=== PATIENT | male | born 1965 | race Caucasian/White ===

== ENCOUNTER 2021-02-02 10:51 | Inpatient (IN) | payer MEDICAID, SELFPAY ==
[2021-02-02] VITALS (7 sets, daily range): BP systolic 148–178; BP diastolic 70–96; PULSE 58–92; RESP 15–18; TEMP 36.4–37; O2SAT 96–97; BMI 29.2
--- NOTE | 2021-02-02 11:42 | EX.ED.DYSGE1 ---
HPI History of Present Illness Chief Complaint: Substance Abuse Informant: patient Narrative Narrative: Patient is a 55-year-old male who presents to the emergency department to detox from alcohol. He states that he has been drinking over the past 40 years. He has been typically drinks 12 beers per day. Over the past 4 months he is now drinking around 12 ounces of liquor per day along with this. He states he is going through a divorce which has triggered this. He has gone through a detox program before in the past, the last was 6 months ago. He last drank this morning. He had a few beers. He also smokes cigarettes. Patient also admits to smoking marijuana. He states he does feel shaky currently as well as some anxiety. He denies any chest pain, shortness of breath or heart palpitations. No abdominal pain or nausea/vomiting. No change in bowel movements. [facility] Medical History (Updated 02/02/21 @ 14:[address] Royce Medina DO) Alcohol abuse Anxiety Chronic pain COPD (chronic obstructive pulmonary disease) Depression Hypertension Peripheral vascular disease Smoker Substance abuse Home Medications amlodipine 10 mg PO DAILY 02/02/21 [History Last Taken Unknown] beclomethasone dipropionate [Qvar] 80 mcg INHALATION BID 02/02/21 [History Last Taken Unknown] clonidine HCl 0.2 mg PO TID 02/02/21 [History Last Taken Unknown] metoprolol succinate 50 mg PO BID 02/02/21 [History Last Taken Unknown] montelukast 10 mg PO QHS 02/02/21 [History Last Taken Unknown] umeclidinium [Incruse Ellipta] 1 inh INHALATION Q24H 02/02/21 [History Last Taken Unknown] Allergy/AdvReac Type Severity Reaction Status Date / Time No Known Allergies Allergy Verified 02/02/21 10:52 Surgical History (Updated 02/02/21 @ 12:18 by Dean Clarke) History of appendectomy Social History (Updated 02/02/21 @ 11:[address] Royce Medina DO) Smoking Status: Heavy Smoker (>10/day) ROS ROS ED Constitutional Constitutional ED: Denies chills or fever(s) Eyes Eyes: Denies change in vision ENT ENT ED: Denies epistaxis or rhinorrhea Cardiovascular Cardiovascular: Denies chest pain or palpitations Respiratory/Chest Respiratory/Chest: Denies cough, dyspnea or dyspnea on exertion Gastrointestinal Gastrointestinal: Denies abdominal pain, diarrhea, nausea or vomiting Genitourinary Genitourinary ED: Denies dysuria, hematuria or urinary frequency Musculoskeletal Musculoskeletal: Denies back pain or neck pain Integumentary Denies rash Neurologic Neurologic: Denies dizziness, headache(s) or weakness EXAM Physical Exam Const Vital Signs: 02/02/21 10:53 Temperature 97.6 F L Temperature Source Temporal Pulse Rate 91 Respiratory Rate 15 Blood Pressure 153/75 H Blood Pressure Mean 101 Pulse Ox 96 Positive well nourished and well developed General Appearance ED: well developed and NAD HEENT Reports normocephalic, head/scalp atraumatic and moist mucous membranes Eyes PERRL and EOMs intact bilaterally Neck supple Chest Wall inspection of chest normal Resp normal respiratory effort and clear to auscultation bilaterally Auscultation: Negative for rales, rhonchi or wheezes Cardio regular rate, regular rhythm and no murmurs GI normal to inspection, nondistended, normoactive bowel sounds and non-tender Palpation: soft; Negative for guarding or rebound tenderness present Back/Spine no CVA tenderness Extremity normal to inspection General Extremety ED: Negative for edema or tenderness General Extremity: Negative for edema Neuro oriented x3, CN's II-XII intact bilaterally and no sensory deficits noted Sensorium / Orientation: alert Motor Exam: strength 5/5 throughout Psych mental status grossly normal Skin no rashes or lesions noted MDM MDM MDM Narrative Medical decision making narrative: Patient presents to the ED to detox from alcohol. Last drink this morning. Upon arrival to the emergency department he is mildly hypertensive otherwise normal vital signs. He has a benign physical exam. Will check medical screening labs and plan on admission to the hospital for detox program. Patient has mild elevation of liver enzymes. His alcohol is negative. Talk screen is positive for cannabinoids which is consistent with his history. He otherwise has been stable throughout ED stay. Will bring into the hospital for further evaluation and management. He understands and is agreeable with this plan. Lab Data Labs: Laboratory Results - last 24 hr 02/02/21 02/02/21 02/02/21 11:50 11:50 11:50 WBC 10.2 RBC 4.72 Hgb 15.8 Hct 46.7 MCV 98.9 H MCH 33.5 H MCHC 33.8 RDW Std Deviation 55.1 H RDW Coeff of Joan 14.9 H Plt Count 234 MPV 9.6 Immature Gran % (Auto) 0.400 Neut % (Auto) 72.1 H Lymph % (Auto) 13.9 L Gem % (Auto) 9.3 Eos % (Auto) 3.5 Baso % (Auto) 0.8 Absolute Neuts (auto) 7.4 Absolute Lymphs (auto) 1.42 Nucleated RBC % 0 Sodium 137 Potassium 3.9 Chloride 100 Carbon Dioxide 29.0 Anion Gap 8 BUN 8 Creatinine 0.78 Estim Creat Clear Calc 111.29 Est GFR (MDRD) Af Amer 131 Est GFR (MDRD) Non-Af 109 BUN/Creatinine Ratio 10.2 Glucose 129 H Calcium 9.6 Total Bilirubin 0.40 AST 76 H ALT 105 H Alkaline Phosphatase 74 Total Protein 7.9 Albumin 3.7 Globulin 4.2 Albumin/Globulin Ratio 0.9 Urine Opiates Screen Urine Methadone Screen Ur Barbiturates Screen Ur Phencyclidine Scrn Ur Amphetamines Screen U Methamphetamin-MDMA U Benzodiazepines Scrn Urine Cocaine Screen U Cannabinoids Screen Ur Drug Screen Comment Ethyl Alcohol < 3.0 02/02/21 12:20 WBC RBC Hgb Hct MCV MCH MCHC RDW Std Deviation RDW Coeff of Joan Plt Count MPV Immature Gran % (Auto) Neut % (Auto) Lymph % (Auto) Gem % (Auto) Eos % (Auto) Baso % (Auto) Absolute Neuts (auto) Absolute Lymphs (auto) Nucleated RBC % Sodium Potassium Chloride Carbon Dioxide Anion Gap BUN Creatinine Estim Creat Clear Calc Est GFR (MDRD) Af Amer Est GFR (MDRD) Non-Af BUN/Creatinine Ratio Glucose Calcium Total Bilirubin AST ALT Alkaline Phosphatase Total Protein Albumin Globulin Albumin/Globulin Ratio Urine Opiates Screen NEGATIVE Urine Methadone Screen NEGATIVE Ur Barbiturates Screen NEGATIVE Ur Phencyclidine Scrn NEGATIVE Ur Amphetamines Screen NEGATIVE U Methamphetamin-MDMA NEGATIVE U Benzodiazepines Scrn NEGATIVE Urine Cocaine Screen NEGATIVE U Cannabinoids Screen POSITIVE H Ur Drug Screen Comment Ethyl Alcohol Discharge Plan Dx/Rx/DC Orders Clinical Impression: Alcohol use disorder, Transaminitis Disposition Disposition: Acute Care Hospital [facility] Discharge Date/Time: 02/02/21 13:17
[2021-02-02 12:01] LABS: Absolute Lymphocyte Count 1.42 X10^3/uL (0.83-4.51); Absolute Neutrophil Count 7.4 X10^3/uL (2.0-7.7); Basophil# 0.08 X10^3/uL; Basophil% 0.8 % (0-1); Eosinophil# 0.36 X10^3/uL; Eosinophils% 3.5 % (0-5); Hematocrit 46.7 % (40-54); Hemoglobin 15.8 g/dL (13.0-16.5); Lymphocyte # 1.42 X10^3/ul (0.83-4.51); Lymphocyte % 13.9 % (19-41); Mean Corp Hgb Conc 33.8 g/dL (32-36); Mean Corpuscular Hgb 33.5 pg (27.0-32.0); Mean Corpuscular Volume 98.9 fL (80-94); Mean Platelet Vol. 9.6 fl (6.2-12.0); Monocyte# 0.95 X10^3/uL; Monocyte% 9.3 % (0-10); NRBC Flagged by Analyzer 0 % (0-5); Neutrophil # 7.36 X10^3/uL (2.7-7.7); Neutrophil % 72.1 % (47-70); Platelet Count 234 K/mm3 (150-450); RBC Distribution Width CV 14.9 % (11.6-14.6); RBC Distribution Width SD 55.1 fl (35.1-43.9); Red Blood Count 4.72 M/mm3 (4.6-6.2); White Blood Count 10.2 K/mm3 (4.4-11.0)
[2021-02-02 12:17] LABS: ALB/GLOB Ratio 0.9 RATIO (0.9-2.4); AST(SGOT) 76 U/L (15-37); Alanine Aminotransfer ALT/SGPT 105 U/L (16-61); Albumin, Serum 3.7 g/dL (3.2-5.0); Alkaline Phosphatase 74 U/L (45-117); Anion Gap 8 (5-15); BUN 8 mg/dL (7-18); BUN/Creat Ratio 10.2 RATIO (10-20); Calcium,Total 9.6 mg/dL (8.5-10.1); Chloride 100 mmol/L (98-107); Creatinine, Serum 0.78 mg/dL (0.70-1.30); EST Glomerular Filtration Rate 109 mL/min (>60); Est Glom Filt Rate - Afr Amer 131 mL/min (>60); Estimated Creatinine Clearance 111.29 ml/min; Globulin 4.2 g/dL (2.2-4.2); Glucose 129 mg/dL (74-106); Potassium 3.9 mmol/L (3.5-5.1); Protein, Total 7.9 g/dL (6.4-8.2); Sodium Level 137 mmol/L (136-145)
[2021-02-02 12:35] LABS: Alcohol, Blood (Medical)-Serum < 3.0 mg/dL
[2021-02-02 12:46] LABS: Amphetamine Urine VISTA NEGATIVE (<1000 ng/mL); Barbiturate Urine VISTA NEGATIVE (< 200 ng/mL); Benzodiazepine Urine VISTA NEGATIVE (< 200 ng/mL); Cocaine Urine VISTA NEGATIVE (< 300 ng/mL); Ecstacy Urine VISTA NEGATIVE (< 500 ng/mL); Methadone Urine VISTA NEGATIVE (< 300 ng/mL); PCP Urine VISTA NEGATIVE (< 25 ng/mL); THC Urine VISTA POSITIVE (< 50 ng/mL); Vista UDS pH Range 6
--- NOTE | 2021-02-02 12:50 | NURSING ---
DR JUAN ANTONIO OHARA
--- NOTE | 2021-02-02 12:53 | PCM.HP.STD ---
HPI - General General Date of Admission: 02/02/21 Date of Service: 02/02/21 Chief Complaint: Request for medical stabilization for acute alcohol withdrawal HPI Narrative MAURICIO BREWER, is a 55 M who presents requesting for medical stabilization for alcohol withdrawal. Patient stated that he has been to detox before about 6 months ago. He been going through divorce and has been staying with a friend. He drinks more than 12 beers a day and more than a pint of hard liquor daily. He complains of feeling tremulous, restless and restless. His blood pressures are slightly elevated. [facility] Medical History Alcohol abuse Anxiety Chronic pain COPD (chronic obstructive pulmonary disease) Depression Hypertension Peripheral vascular disease Smoker Substance abuse Home Medications amlodipine 10 mg PO DAILY 02/02/21 [History Last Taken Unknown] beclomethasone dipropionate [Qvar] 80 mcg INHALATION BID 02/02/21 [History Last Taken Unknown] clonidine HCl 0.2 mg PO TID 02/02/21 [History Last Taken Unknown] metoprolol succinate 50 mg PO BID 02/02/21 [History Last Taken Unknown] montelukast 10 mg PO QHS 02/02/21 [History Last Taken Unknown] umeclidinium [Incruse Ellipta] 1 inh INHALATION Q24H 02/02/21 [History Last Taken Unknown] Allergy/AdvReac Type Severity Reaction Status Date / Time No Known Allergies Allergy Verified 02/02/21 10:52 Family History (Updated 02/02/21 @ 16:[address] Cierra Suarez MD) Father Heart disease Mother PAD (peripheral artery disease) Surgical History History of appendectomy Social History (Updated 02/02/21 @ 16:[address] Cierra Suarez MD) household members: friend(s) Smoking Status: Heavy Smoker (>10/day) alcohol intake: current substance use type: marijuana ROS ROS Narrative Constitutional: Reports: Malaise, Weakness, Fatigue. Denies: Anorexia, Chills, Fever, Night Sweats, Weight Change Eyes: Denies: Blurred vision, Cataracts, Conjunctivae Inflammation, Pain, Redness, Vision Change HEENT: Denies: Difficulty Hearing, Difficulty Swallowing, Head Aches, Hearing Changes, Sinus Congestion, Sinus Drainage Cardiovascular: Denies: Chest Pain, Orthopnea, Palpitations Respiratory: Denies: Cough, Shortness of breath at rest, Sputum production Gastrointestinal: Denies: Abdominal Pain, Nausea, Vomiting Genitourinary: Denies: Dysuria Musculoskeletal: Denies: Joint Pain, Joint stiffness, Joint swelling, Joint Tenderness Skin: Denies: Rash, Wounds Neurological: Denies: Numbness, Tingling, Focal weakness Vital Signs Vital Signs Vital Signs: 02/02/21 10:53 Temperature 97.6 F L Temperature Source Temporal Pulse Rate 91 Respiratory Rate 15 Blood Pressure 153/75 H Blood Pressure Mean 101 Pulse Ox 96 Weight Weight: 95.254 kg Body Mass Index (BMI) 29.2 Physical Exam Narrative Physical exam: General: Alert, Oriented x3, Cooperative, No apparent distress, Well developed HEENT: Atraumatic Oral: Moist Mucosa Neck: Supple Lungs: Clear to auscultation Cardiovascular: HS I+II, regular, no murmurs Abdomen: Bowel Sounds Present, Soft, Non Tender Extremities: No edema Skin: No rashes, No breakdown Neurological: Grossly intact Psych/Mental Status: Appropriate Results Lab / Micro Data Result Diagrams: 02/02/21 11:50 02/02/21 11:50 Labs: Laboratory Results - last 24 hr 02/02/21 02/02/21 02/02/21 11:50 11:50 11:50 WBC 10.2 RBC 4.72 Hgb 15.8 Hct 46.7 MCV 98.9 H MCH 33.5 H MCHC 33.8 RDW Std Deviation 55.1 H RDW Coeff of Joan 14.9 H Plt Count 234 MPV 9.6 Immature Gran % (Auto) 0.400 Neut % (Auto) 72.1 H Lymph % (Auto) 13.9 L Dewitt % (Auto) 9.3 Eos % (Auto) 3.5 Baso % (Auto) 0.8 Absolute Neuts (auto) 7.4 Absolute Lymphs (auto) 1.42 Nucleated RBC % 0 Sodium 137 Potassium 3.9 Chloride 100 Carbon Dioxide 29.0 Anion Gap 8 BUN 8 Creatinine 0.78 Estim Creat Clear Calc 111.29 Est GFR (MDRD) Af Amer 131 Est GFR (MDRD) Non-Af 109 BUN/Creatinine Ratio 10.2 Glucose 129 H Calcium 9.6 Total Bilirubin 0.40 AST 76 H ALT 105 H Alkaline Phosphatase 74 Total Protein 7.9 Albumin 3.7 Globulin 4.2 Albumin/Globulin Ratio 0.9 Urine Opiates Screen Urine Methadone Screen Ur Barbiturates Screen Ur Phencyclidine Scrn Ur Amphetamines Screen U Methamphetamin-MDMA U Benzodiazepines Scrn Urine Cocaine Screen U Cannabinoids Screen Ur Drug Screen Comment Ethyl Alcohol < 3.0 02/02/21 12:20 WBC RBC Hgb Hct MCV MCH MCHC RDW Std Deviation RDW Coeff of Joan Plt Count MPV Immature Gran % (Auto) Neut % (Auto) Lymph % (Auto) Dewitt % (Auto) Eos % (Auto) Baso % (Auto) Absolute Neuts (auto) Absolute Lymphs (auto) Nucleated RBC % Sodium Potassium Chloride Carbon Dioxide Anion Gap BUN Creatinine Estim Creat Clear Calc Est GFR (MDRD) Af Amer Est GFR (MDRD) Non-Af BUN/Creatinine Ratio Glucose Calcium Total Bilirubin AST ALT Alkaline Phosphatase Total Protein Albumin Globulin Albumin/Globulin Ratio Urine Opiates Screen NEGATIVE Urine Methadone Screen NEGATIVE Ur Barbiturates Screen NEGATIVE Ur Phencyclidine Scrn NEGATIVE Ur Amphetamines Screen NEGATIVE U Methamphetamin-MDMA NEGATIVE U Benzodiazepines Scrn NEGATIVE Urine Cocaine Screen NEGATIVE U Cannabinoids Screen POSITIVE H Ur Drug Screen Comment Ethyl Alcohol Assessment & Plan Assessment/Plan (1) Alcohol use disorder: (2) Transaminitis: (3) Uncontrolled hypertension: (4) Nicotine dependence: QUALIFIERS: Nicotine product type: cigarettes Substance use status: uncomplicated Qualified Code(s): F17.210 - Nicotine dependence, cigarettes, uncomplicated PLAN: 1. Acute alcohol withdrawal, and a known alcoholic We will start on phenobarb taper, folic acid, multivitamin, thiamine 2. Hypertension, uncontrolled, continue with home blood pressure medication 3. Nicotine dependence, continue with replacement 4. Elevated LFTs likely secondary to alcohol, will trend, repeat blood work in a.m. 5. Polysubstance use, advised to quit Charges/Coding Visit Charges Inpatient E&M: 23553 Subs Hosp L2
--- NOTE | 2021-02-02 13:02 | NURSING ---
[address] [place] [address]
[2021-02-02] MEDS: Phenobarbital 32.4 MG Tablet 64.8 MG PO ×3 (14:07→22:17)
[2021-02-02] MEDS: cloNIDine HCl 0.2 MG Tablet PO ×2 (14:07→22:17)
[2021-02-02] MEDS: hydrOXYzine PAM 25 MG Capsule 50 MG PO ×2 (16:13→22:17)
--- NOTE | 2021-02-02 17:33 | CM.ED ---
ANALIA Note SW referral Source: Case Find Reason for Referral: [facility] admission ANALIA called Gabbi, treatment navigator,for [facility]. ANALIA updated Gabbi as to the new admission of patient to the [facility] program. Gabbi said that Diane will follow up in the morning. ANALIA remains available if needed. Plan: SHELLY STARKS
[2021-02-02] MEDS: Metoprolol(XL)Succ 50 MG Tablet PO (18:04)
[2021-02-02] MEDS: Ipratropium 0.5 MG/2.5 ML SOLUTION INHALATION (19:46)
[2021-02-02] MEDS: Budesonide Respules 0.5 MG/2 ML AMPUL.NEB. INHALATION (19:47)
[2021-02-02] MEDS: 0.9% Saline Lock 10 ML Syringe IV (20:20)
[2021-02-02] MEDS: Montelukast 10 MG Tablet PO (22:17)
[2021-02-02] MEDS: traZODone 100 MG Tablet PO (22:17)
[2021-02-02] MEDS: Dicyclomine 10 MG Capsule 20 MG PO (22:17)
[2021-02-03] VITALS (13 sets, daily range): BP systolic 125–160; BP diastolic 67–83; PULSE 54–65; RESP 15–19; TEMP 36.5–36.8; O2SAT 97–98
[2021-02-03] MEDS: Phenobarbital 32.4 MG Tablet 64.8 MG PO ×6 (02:57→22:53)
[2021-02-03] MEDS: Dicyclomine 10 MG Capsule 20 MG PO (06:59)
[2021-02-03] MEDS: Folic Acid 1 MG Tablet PO (07:00)
[2021-02-03] MEDS: Thiamine Hydrochloride 100 MG Tablet PO (07:01)
[2021-02-03] MEDS: Budesonide Respules 0.5 MG/2 ML AMPUL.NEB. INHALATION ×2 (07:26→18:56)
[2021-02-03] MEDS: Ipratropium 0.5 MG/2.5 ML SOLUTION INHALATION ×3 (07:26→18:55)
[2021-02-03 09:01] LABS: ALB/GLOB Ratio 0.8 RATIO (0.9-2.4); AST(SGOT) 65 U/L (15-37); Alanine Aminotransfer ALT/SGPT 92 U/L (16-61); Albumin, Serum 3.3 g/dL (3.2-5.0); Alkaline Phosphatase 69 U/L (45-117); Anion Gap 6 (5-15); BUN 12 mg/dL (7-18); BUN/Creat Ratio 13.8 RATIO (10-20); Calcium,Total 9.5 mg/dL (8.5-10.1); Chloride 100 mmol/L (98-107); Creatinine, Serum 0.87 mg/dL (0.70-1.30); EST Glomerular Filtration Rate 96 mL/min (>60); Est Glom Filt Rate - Afr Amer 116 mL/min (>60); Estimated Creatinine Clearance 99.77 ml/min; Globulin 4.4 g/dL (2.2-4.2); Glucose 138 mg/dL (74-106); Potassium 3.9 mmol/L (3.5-5.1); Protein, Total 7.7 g/dL (6.4-8.2); Sodium Level 134 mmol/L (136-145)
--- NOTE | 2021-02-03 10:04 | ADDICTION ---
This medical writer met with PT to conduct ASAM, MSE, AUDIT assessments and to plan for d/c. PT A+Ox4. All assessments completed, faxed to and placed in PT's chart. PT to d/c to home and will f/u with [facility] independently. Was provided with assessment times. PT to d/c to home.
[2021-02-03] MEDS: amLODIPine 10 MG Tablet PO (10:41)
[2021-02-03] MEDS: Metoprolol(XL)Succ 50 MG Tablet PO ×2 (10:41→22:53)
--- NOTE | 2021-02-03 13:22 | PCM.PN.HOSP ---
Subjective Subjective Patient was seen and examined. No new complaints. Objective Data Objective Data Vital Signs: Vital Signs Temp Pulse Resp BP Pulse Ox 98.2 F 65 19 H 130/67 H 98 02/03/21 10:00 02/03/21 10:41 02/03/21 13:12 02/03/21 10:41 02/03/21 10:00 Oxygen Delivery Method Room Air Weight: 95.2 kg Body Mass Index (BMI) 29.2 Intake & Output: Intake and Output for Last 24 Hours 02/01/21 02/02/21 02/03/21 23:59 23:59 23:59 Intake Total 1300 / 1300 400 / 400 Balance 1300 / 1300 400 / 400 Lab / Micro Data Result Diagrams: 02/02/21 11:50 02/03/21 08:20 Labs: Laboratory Results - last 24 hr 02/03/21 08:20 Sodium 134 L Potassium 3.9 Chloride 100 Carbon Dioxide 28.0 Anion Gap 6 BUN 12 Creatinine 0.87 Estim Creat Clear Calc 99.77 Est GFR (MDRD) Af Amer 116 Est GFR (MDRD) Non-Af 96 BUN/Creatinine Ratio 13.8 Glucose 138 H Calcium 9.5 Total Bilirubin 0.60 AST 65 H ALT 92 H Alkaline Phosphatase 69 Total Protein 7.7 Albumin 3.3 Globulin 4.4 H Albumin/Globulin Ratio 0.8 L Physical Exam Narrative Physical exam: General: Alert, Oriented x3, Cooperative, No apparent distress, Well developed HEENT: Atraumatic Oral: Moist Mucosa Neck: Supple Lungs: Clear to auscultation Cardiovascular: HS I+II, regular, no murmurs Abdomen: Bowel Sounds Present, Soft, Non Tender Extremities: No edema Skin: No rashes, No breakdown Neurological: Grossly intact Psych/Mental Status: Appropriate Assessment & Plan Assessment/Plan (1) Alcohol use disorder: (2) Transaminitis: (3) Uncontrolled hypertension: (4) Nicotine dependence: QUALIFIERS: Nicotine product type: cigarettes Substance use status: uncomplicated Qualified Code(s): F17.210 - Nicotine dependence, cigarettes, uncomplicated PLAN: 1. Acute alcohol withdrawal, improving, last CIWA score was 3, continue on phenobarb taper Continue on folic acid, multivitamin, thiamine 2. Hypertension, better controlled now Continue with home blood pressure medication 3. Nicotine dependence, continue with replacement 4. Elevated LFTs likely secondary to alcohol, improving 5. Polysubstance use, advised to quit Charges/Coding Visit Charges Inpatient E&M: 43991 Subs Hosp L2
[2021-02-03] MEDS: hydrOXYzine PAM 25 MG Capsule 50 MG PO ×2 (13:31→20:08)
[2021-02-03] MEDS: cloNIDine HCl 0.2 MG Tablet PO ×2 (14:37→22:53)
[2021-02-03] MEDS: Acetaminophen 500 MG Tablet PO (20:07)
[2021-02-03] MEDS: traZODone 100 MG Tablet PO (22:53)
[2021-02-03] MEDS: Montelukast 10 MG Tablet PO (22:53)
[2021-02-04] VITALS (9 sets, daily range): BP systolic 130–160; BP diastolic 69–79; PULSE 54–68; RESP 16–18; TEMP 36.3–36.6; O2SAT 95–98
[2021-02-04] MEDS: hydrOXYzine PAM 25 MG Capsule 50 MG PO ×2 (02:22→20:26)
[2021-02-04] MEDS: Phenobarbital 32.4 MG Tablet 64.8 MG PO ×6 (02:22→21:29)
[2021-02-04] MEDS: Ondansetron 8 MG Tablet PO ×2 (02:22→20:26)
[2021-02-04] MEDS: cloNIDine HCl 0.2 MG Tablet PO ×3 (06:10→21:29)
[2021-02-04] MEDS: Ipratropium 0.5 MG/2.5 ML SOLUTION INHALATION ×3 (06:52→19:18)
[2021-02-04] MEDS: Budesonide Respules 0.5 MG/2 ML AMPUL.NEB. INHALATION ×2 (06:52→19:18)
[2021-02-04] MEDS: Metoprolol(XL)Succ 50 MG Tablet PO (09:14)
[2021-02-04] MEDS: Thiamine Hydrochloride 100 MG Tablet PO (09:15)
[2021-02-04] MEDS: Folic Acid 1 MG Tablet PO (09:15)
[2021-02-04] MEDS: amLODIPine 10 MG Tablet PO (09:15)
[2021-02-04] MEDS: Gabapentin 300 MG Capsule PO ×2 (09:19→21:34)
--- NOTE | 2021-02-04 11:15 | PN.HOSP_ITS ---
Subjective Subjective Patient was seen and examined. No acute events overnight. Objective Data Objective Data Vital Signs: Vital Signs Temp Pulse Resp BP Pulse Ox 97.7 F L 66 16 160/71 H 96 02/04/21 02:16 02/04/21 09:14 02/04/21 06:52 02/04/21 06:08 02/04/21 02:16 Oxygen Delivery Method Room Air Weight: 95.2 kg Body Mass Index (BMI) 29.2 Intake & Output: Intake and Output for Last 24 Hours 02/02/21 02/03/21 02/04/21 23:59 23:59 23:59 Intake Total 1300 / 1300 2450 / 2450 900 / 900 Balance 1300 / 1300 2450 / 2450 900 / 900 Lab / Micro Data Result Diagrams: 02/02/21 11:50 02/03/21 08:20 Physical Exam Narrative Physical exam: General: Alert, Oriented x3, Cooperative, No apparent distress, Well developed HEENT: Atraumatic Oral: Moist Mucosa Neck: Supple Lungs: Clear to auscultation Cardiovascular: HS I+II, regular, no murmurs Abdomen: Bowel Sounds Present, Soft, Non Tender Extremities: No edema Skin: No rashes, No breakdown Neurological: Grossly intact Psych/Mental Status: Appropriate Assessment & Plan Assessment/Plan (1) Alcohol use disorder: (2) Transaminitis: (3) Uncontrolled hypertension: (4) Nicotine dependence: QUALIFIERS: Nicotine product type: cigarettes Substance use statu s: uncomplicated Qualified Code(s): F17.210 - Nicotine dependence, cigarettes, uncomplicated PLAN: 1. Acute alcohol withdrawal, improving, last CIWA score was 10, Continue on phenobarb taper Continue on folic acid, multivitamin, thiamine 2. Hypertension, BP has been fluctuating, We will increase metoprolol tartrate to 75 mg BID Will continue with current meds?amlodipine, clonidine 0.2 mg p.o. TID 3. Nicotine dependence, continue with replacement 4. Elevated LFTs likely secondary to alcohol, improving 5. Polysubstance use, advised to quit Charges/Coding Visit Charges Inpatient E&M: 64347 Subs Hosp L2
[2021-02-04] MEDS: Acetaminophen 500 MG Tablet PO (17:40)
[2021-02-04] MEDS: Dicyclomine 10 MG Capsule 20 MG PO (20:26)
[2021-02-04] MEDS: Montelukast 10 MG Tablet PO (21:29)
[2021-02-04] MEDS: Metoprolol Tartrate 25 MG Tablet 75 MG PO (21:29)
[2021-02-04] MEDS: traZODone 100 MG Tablet PO (21:34)
[2021-02-05 03:02] VITALS: BP 107/65; PULSE 50; RESP 18; TEMP 36.4; O2SAT 97
[2021-02-05] MEDS: Phenobarbital 32.4 MG Tablet 64.8 MG PO (03:06)
[2021-02-05] MEDS: hydrOXYzine PAM 25 MG Capsule 50 MG PO (03:06)
[2021-02-05 05:27] VITALS: BP 127/70; PULSE 53; RESP 18; TEMP 36.5; O2SAT 99
[2021-02-05] MEDS: Gabapentin 300 MG Capsule PO (05:31)
[2021-02-05] MEDS: Budesonide Respules 0.5 MG/2 ML AMPUL.NEB. INHALATION (07:02)
[2021-02-05] MEDS: Ipratropium 0.5 MG/2.5 ML SOLUTION INHALATION (07:02)
[2021-02-05 07:03] VITALS: PULSE 58; RESP 16
[2021-02-05 08:05] VITALS: BP 127/70; PULSE 58
[2021-02-05] MEDS: Folic Acid 1 MG Tablet PO (08:05)
[2021-02-05] MEDS: Metoprolol Tartrate 25 MG Tablet 75 MG PO (08:05)
[2021-02-05] MEDS: Thiamine Hydrochloride 100 MG Tablet PO (08:06)
[2021-02-05] MEDS: amLODIPine 10 MG Tablet PO (08:06)
[2021-02-05 11:14] VITALS: BP 135/77; PULSE 61; RESP 16; TEMP 36.8; O2SAT 96
--- NOTE | 2021-02-05 11:23 | PCM.DC ---
Discharge Instructions Diet Discharge Diet: Low fat / Low cholesterol and 2000 mg Sodium Diet Activity Discharge Activity: Return to Normal Activity Follow Up Care Test Results: Test results from this visit will be discussed in further detail at your follow-up appointment, if applicable. Discharge Plan Admission Admit Date/Time: 02/02/21 12:53 Primary Reason for Your Visit: Acute alcohol withdrawal Attending Provider: Cierra Suarez Instructions Additional Instructions / Restrictions: You are strongly advised to avoid alcohol or use of any illicit drug. Avoid smoking. Follow-up with your outpatient rehab program as scheduled. You need to follow-up with your primary care doctor within 2 weeks for repeat blood work to follow up on your liver function. Discharge Orders/Prescriptions Prescriptions: New thiamine HCl (vitamin B1) [Vitamin B-1] 100 mg Tablet 100 mg PO DAILYCM 30 Days Qty: 30 RF: 0 metoprolol tartrate 25 mg Tablet 75 mg PO BID 30 Days Qty: 180 RF: 0 Continued beclomethasone dipropionate 80 mcg/actuation Aerosol 80 mcg INHALATION BID RF: 0 clonidine HCl 0.2 mg Tablet 0.2 mg PO TID RF: 0 amlodipine 10 mg Tablet 10 mg PO DAILY RF: 0 montelukast 10 mg Tablet 10 mg PO QHS RF: 0 Incruse Ellipta 62.5 mcg/actuation Blister With Device 1 inh INHALATION Q24H RF: 0 Discontinued metoprolol succinate 50 mg Tablet Extended Release 24 Hr 50 mg PO BID RF: 0 Referrals / Follow Up: CATHY VOGEL [Other] - Within 2 Weeks Disposition Disposition (needs filled in before D/C Order can be placed): Home, self care
--- NOTE | 2021-02-05 15:24 | DS.PCM_ITS ---
Providers Date of Admission: 02/02/21 Date of Discharge: 02/05/21 Primary Care Physician: CATHY VOGEL Reason For Visit: ACUTE ALCOHOL WITHDRAWAL Diagnosis Discharge Diagnosis (1) Alcohol use disorder: Status: Chronic (2) Transaminitis: Status: Acute Code(s): R74.01 - Elevation of levels of liver transaminase levels (3) Uncontrolled hypertension: Status: Chronic Code(s): I10 - Essential (primary) hypertension (4) Nicotine dependence: Status: Chronic Code(s): F17.200 - Nicotine dependence, unspecified, uncomplicated Qualifiers: Nicotine product type: cigarettes Substance use status: uncomplicated Qualified Code(s): F17.210 - Nicotine dependence, cigarettes, uncomplicated Medications at Discharge Home Medications Incruse Ellipta 1 inh INHALATION Q24H 02/02/21 amlodipine 10 mg PO DAILY 02/02/21 beclomethasone dipropionate 80 mcg INHALATION BID 02/02/21 clonidine HCl 0.2 mg PO TID 02/02/21 montelukast 10 mg PO QHS 02/02/21 metoprolol tartrate 75 mg PO BID 30 Days #180 tab 02/05/21 thiamine HCl (vitamin B1) [Vitamin B-1] 100 mg PO DAILYCM 30 Days #30 tab 02/05/21 Hospital Course Operations None Procedures None Summary of Care Provided Minutes Spent on Discharge: 40 Hospital Course: 55-year-old male who presents for medical stabilization for acute alcohol withdrawal. Patient has been going through divorce and staying with a friend. He admits to drinking more than 12 beers a day and more than a pint of hard liquor daily. [facility] and managed on the phenobarbital withdrawal protocol with improvement. He had elevated liver enzymes that trended down. He was seen by the 180 counsellor and will follow-up with them as scheduled. Physical Exam Narrative Physical exam: General: Alert, oriented x3, cooperative, no apparent distress, well developed HEENT: Atraumatic Oral: Moist Mucosa Neck: Supple Lungs: Clear to auscultation Cardiovascular: HS I+II, regular, no murmurs Abdomen: Bowel Sounds Present, Soft, Non Tender Extremities: No edema Skin: No rashes, No breakdown Neurological: Grossly intact Psych/Mental Status: Appropriate Weight / BMI Weight Weight: 95.2 kg Body Mass Index (BMI) 29.2 ABG / Lab / Microbiology Data Result Diagrams: 02/02/21 11:50 02/03/21 08:20 D/C Instructions Discharge Diet: Low fat / Low cholesterol and 2000 mg Sodium Diet Meaningful Use Info Meaningful Use Diagnoses (Choose all that apply): None applicable Discharge Plan Admission Admit Date/Time: 02/02/21 12:53 Primary Reason for Your Visit: Acute alcohol withdrawal Attending Provider: Cierra Suarez Instructions Additional Instructions / Restrictions: You are strongly advised to avoid alcohol or use of any illicit drug. Avoid smoking. Follow-up with your outpatient rehab program as scheduled. You need to follow-up with your primary care doctor within 2 weeks for repeat blood work to follow up on your liver function. Discharge Orders/Prescriptions Prescriptions: New thiamine HCl (vitamin B1) [Vitamin B-1] 100 mg Tablet 100 mg PO DAILYCM 30 Days Qty: 30 RF: 0 metoprolol tartrate 25 mg Tablet 75 mg PO BID 30 Days Qty: 180 RF: 0 Continued beclomethasone dipropionate 80 mcg/actuation Aerosol 80 mcg INHALATION BID RF: 0 clonidine HCl 0.2 mg Tablet 0.2 mg PO TID RF: 0 amlodipine 10 mg Tablet 10 mg PO DAILY RF: 0 montelukast 10 mg Tablet 10 mg PO QHS RF: 0 Incruse Ellipta 62.5 mcg/actuation Blister With Device 1 inh INHALATION Q24H RF: 0 Discontinued metoprolol succinate 50 mg Tablet Extended Release 24 Hr 50 mg PO BID RF: 0 Referrals / Follow Up: CATHY VOGEL [Other] - Within 2 Weeks Disposition Disposition (needs filled in before D/C Order can be placed): Home, self care Charges/Coding Visit Charges Inpatient E&M: 41768 Disch Hosp
== END 2021-02-05 11:21 | disposition home or self-care (01) | DRG 775 ==
LOC: ED 12:46 → MS3 12:59
PROVIDERS: Admitting Provider Internal Medicine; Emergency Provider Emergency Medicine; Visit Provider Internal Medicine
DX: F10.239 Alcohol dependence with withdrawal, unspecified (principal); F17.210 Nicotine dependence, cigarettes, uncomplicated; R74.01 Elevation of levels of liver transaminase levels; I10 Essential (primary) hypertension; R94.5 Abnormal results of liver function studies; F12.90 Cannabis use, unspecified, uncomplicated; Z79.899 Other long term (current) drug therapy
CPT/HCPCS: 36415; 80053; 80307; 82077; 85025; 94640; 99284; A4216